=== PATIENT | female | born 1965 | race Caucasian/White ===

== ENCOUNTER 2020-02-28 23:32 | Emergency (ER) | payer BC ==
[~2020-02-28] VITALS: Ht 162.6 cm; Wt 79.5 kg
--- NOTE | 2020-02-28 23:56 | PHYS DOC ---
General Adult EDM: Chief Complaint: HAND PROBLEM HPI: HPI: Patient is a 54 year old female who presents with complaint of right hand pain after punching a glass door. Glass did not break. Patient reports pain is moderate in her knuckles. She denies any other injuries. [] Review of Systems: Review of Systems: Constitutional: Denies fever or chills. [] Respiratory: Denies cough or shortness of breath. [] Cardiovascular: Denies chest pain or edema. [] Musculoskeletal: Complains of right hand pain. [] Integument: Denies rash. [] Heart Score: Risk Factors: Risk Factors: DM, Current or recent (<one month) smoker, HTN, HLP, family hist ory of CAD, obesity. Risk Scores: Score 0 - 3: 2.5% MACE over next 6 weeks - Discharge Home Score 4 - 6: 20.3% MACE over next 6 weeks - Admit for Clinical Observation Score 7 - 10: 72.7% MACE over next 6 weeks - Early Invasive Strategies Physical Exam: PE: Constitutional: Well developed, well nourished, no acute distress, non-toxic appearance. [] Cardiovascular: Regular rate and rhythm [] Lungs & Thorax: Bilateral breath sounds clear to auscultation [] Extremities: Examination of right hand demonstrates soft tissue swelling and tenderness around the MCPs of second, third and fourth digits. [] Neurologic: Alert and oriented X 3, no focal deficits noted. [] EKG: EKG: [] Radiology/Procedures: Radiology/Procedures: [] Impression: X-ray of right hand demonstrates no acute bony abnormalities. Course & Med Decision Making: Course & Med Decision Making Pertinent Labs and Imaging studies reviewed. (See chart for details) [] Dragon Disclaimer: Dragon Disclaimer: This electronic medical record was generated, in whole or in part, using a voice recognition dictation system. Departure Departure Impression: Primary Impression: Contusion of right hand Qualified Codes: S60.221A - Contusion of right hand, initial encounter Disposition: HOME, SELF-CARE Condition: STABLE Patient Instructions: Hand Contusion Scripts Diclofenac Sodium (DICLOFENAC SODIUM) 50 Mg Tablet. 1 TAB PO BID PRN for PAIN, #20 TAB Prov: CHRIS NOE Jr. DO 02/29/20 Justicifation of Admission Dx: Justifications for Admission: Justification of Admission Dx: Comment: (Not applicable) CHRIS NOE Jr. DO Feb 28, 2020 23:56
[2020-02-29] MEDS ORDERED: DICL50TA4 PO (00:18)
[2020-02-29 00:42] VITALS: BP 113/55
--- NOTE | 2020-02-29 00:58 | RAD ---
EXAM: RIGHT HAND 3 VIEWS. HISTORY: Punched a door, pain. COMPARISON: None. FINDINGS: No fractures are identified. Alignment is maintained. Joint spaces are maintained. IMPRESSION: 1. No fracture. Electronically signed by: Carmelina Sarkar MD (02/29/2020 12:55 AM) [facility]
== END 2020-02-29 00:46 | disposition home or self-care (01) ==
LOC: ER 23:32
DX: S60.221A Contusion of right hand, initial encounter (principal); R60.0 Localized edema; Y29.XXXA Contact with blunt object, undetermined intent, initial encounter; Y93.89 Activity, other specified; Y92.89 Other specified places as the place of occurrence of the external cause; Y99.8 Other external cause status
CPT/HCPCS: 73130; 99283

== ENCOUNTER 2021-12-13 10:54 | Emergency (ER) | payer BC, OTHER ==
[~2021-12-13] VITALS: Ht 162.6 cm; Wt 69.3 kg
[~2021-12-13 10:54] MED LIST: DICL50TA4 PO
[2021-12-13 11:00] VITALS: BP 117/80
--- NOTE | 2021-12-13 11:11 | PHYS DOC ---
Past Medical History Past Medical History: No Pertinent History Past Surgical History: Hysterectomy, Oophorectomy, Tubal ligation Smoking Status: Never Smoker Alcohol Use: None General Adult EDM: Chief Complaint: HEADACHE HPI: HPI: Patient is a 56 year old female who presents here by private vehicle, with her daughter, with multiple complaints. Symptoms initially began on November 272021, then recurred and have been consistent for the past 4 days. She describes vertigo, headache, nausea and vomiting. Her headache is mostly right-sided. She does have a history of migraines, but she reports that her migraine pain is usually global, nonlocalized. No thunderclap headache reported. She reports photophobia and mildly blurred vision. No vision loss or hemianopsia. No fall or head injury or syncope. No neck pain or back pain. She reports the bottom of her right heel has felt tingling and numb for the past several days. She denies chest pain. She reports generalized mid abdominal discomfort, reports nausea, no vomiting. She denies bowel habit changes. She denies urinary sympto ms. She reports that she feels weak all over but feels like her right side is weaker. The patient's daughter gave her Dramamine a few days ago, the patient reports it did not help her symptoms but it helped her sleep. She has not taken anything for her headache pain. She has not seen her PCP. She initially presented to an urgent care earlier today, and the urgent care nurse pr actitioner contacted us informing us of her pending arrival. The nurse practitioner reported that she felt the patient's pupils were unequal and that she seemed to have some right-sided weakness. The patient herself was hesitant to seek any medical care, but her daughter had persuaded her to be seen. The patient describes several days of nasal congestion, postnasal drainage, tinnitus and hearing loss. Review of Systems: Review of Systems: Constitutional: Denies fever or chills. [] Eyes: Reports mild blurred vision, no vision loss or hemianopsia. No ocular pain. She does report photophobia HENT: She does report mild nasal congestion. Denies sore throat, voice changes, denies epistaxis. Denies facial pain. She does report some tinnitus and mild hearing loss. Respiratory: Denies cough or shortness of breath. [] Cardiovascular: Denies chest pain, palpitations, edema or syncope. GI: Reports generalized mid abdominal discomfort. Reports nausea, no vomiting. No bowel habit changes. : Denies urinary symptoms. Musculoskeletal: Denies back pain or joint pain. [] Integument: Denies rash. [] Neurologic: She does report a right-sided headache. Reports some tingling of her right foot, plantar surface. Feels that she is weaker on the right side. No facial droop or speech difficulty reported. Psychiatric: Anxiety Heart Score: C/O Chest Pain: No Risk Factors: Risk Factors: DM, Current or recent (<one month) smoker, HTN, HLP, family history of CAD, obesity. Risk Scores: Score 0 - 3: 2.5% MACE over next 6 weeks - Discharge Home Score 4 - 6: 20.3% MACE over next 6 weeks - Admit for Clinical Observation Score 7 - 10: 72.7% MACE over next 6 weeks - Early Invasive Strategies Allergies: Allergies: Allergies Coded Allergies Type Severity Reaction Last Updated Verified No Known Drug Allergies 02/28/20 No Physical Exam: PE: Constitutional: Well developed, well nourished, no acute distress, non-toxic appearance. [] HENT: Normocephalic, atraumatic, oropharynx is patent and clear. Mucous membranes are moist. There is no evidence of facial asymmetry, no evidence of facial trauma, no facial rash. Temporal arteries are nontender. TMs are clear bilaterally. External ear canals are normal bilaterally. Nares are patent and clear without rhinorrhea or epistaxis. No dental trauma is noted. Eyes: PERRL, EOMI, conjunctiva normal, no discharge. No nystagmus. No scleral icterus. No ocular trauma, no periorbital edema, erythema or contusion are noted. There is no evidence of anisocoria or unequal pupils. Neck: Normal range of motion, no tenderness, supple, no stridor. Trachea is midline. No JVD. No meningismus Cardiovascular:Heart rate regular rhythm, +2 radial and +2 posterior tibial pulses bilaterally. No edema. Warm and well-perfused Lungs & Thorax: Lungs are clear to auscultation bilaterally without rales, rhonchi or wheezes. No evidence of chest wall trauma. Abdomen: Abdomen is soft, nondistended, nontender to palpation. No palpable pulsatile mass. No CVA tenderness. No flank abdominal ecchymoses. Skin: Warm, dry, no erythema, no rash. No jaundice. No open wounds. Back: No tenderness, no CVA tenderness. Full range of motion. Extremities: No tenderness, no cyanosis, no clubbing, ROM intact, no edema. No calf tenderness. No limb deformity. Neurologic: The patient is awake, alert, oriented x3. Cranial nerves II through XII grossly intact. Sensation is grossly intact. She demonstrates 5 out of 5 motor strength in all 4 extremities. No limb ataxia is noted. Initially, she appeared to have some subtle right upper extremity drift, but this appeared to be volitional, and on repeat exam, she is able to hold her arm up without difficulty, no ataxia, no drift noted. Also, on initial exam of her right lower extremity, she seemed to have some difficulty holding her right leg up for a period time, but she reported this was secondary to her chronic right hip pain, subsequent exam reveals normal ability to hold her leg up against gravity. No lower extremity ataxia is noted. Her speech is clear and fluent. Psychologic: Affect is anxious, somewhat histrionic Current Patient Data: Vital Signs: Vital Signs Date Time Temp Pulse Resp B/P (MAP) Pulse Ox O2 Delivery O2 Flow Rate FiO2 12/13/21 11:00 98.7 68 16 117/80 (92) 99 Room Air 98.7 EKG: EKG: [] Radiology/Procedures: Radiology/Procedures: IMAGING REPORT Signed PATIENT: ALON CHAHAL ACCOUNT: [id number] : 1965 LOCATION: ER AGE: 56 SEX: F EXAM STATUS: REG ER ORD. PHYSICIAN: DENNIS SANTIZO DO REASON: vertigo, headache PROCEDURE: CT HEAD WO CONTRAST EXAM: Head CT without contrast. HISTORY: Vertigo. Headache. TECHNIQUE: Computed tomographic images of the head were obtained without contrast. *One or more of the following individualized dose reduction techniques were utilized for this examination: 1. Automated exposure control. 2. Adjustment of the mA and/or kV according to patient size. 3. Use of iterative reconstruction technique. COMPARISON: None. FINDINGS: There is no acute or subacute extra-axial or intraparenchymal hemorrhage. There is no mass effect or midline shift. There is no hydrocephalus. There is a small focus of hyperdensity within the left frontal white matter which may be volume averaging artifact or a focus of chronic encephalomalacia. The visualized portions of the orbits, paranasal sinuses and mastoid air cells are unremarkable. No suspicious calvarial lesion is seen. IMPRESSION: No acute intracranial finding. Note is made that MRI is more sensitive for acute infarction. Electronically signed by: Cherie Landa MD (12/13/2021 12:12 PM) [facility] DICTATED and SIGNED BY: CHERIE LANDA MD DATE: 12/13/21 1211 Course & Med Decision Making: Course & Med Decision Making Pertinent Labs and Imaging studies reviewed. (See chart for details) Patient is given IV fluids, IV Toradol, IV Benadryl. She reports near resolution of her headache. Her vertigo is markedly improved. She is ambulatory with a steady gait. She has a nonfocal neurologic exam. No evidence of limb or gait ataxia is noted. I have had multiple lengthy discussions with the patient and her daughter regarding the findings, differential diagnosis and plan of care. The patient does not wish to stay for any further evaluation, declines admission, she will follow-up as an outpatient with her PCP. I gave her outpatient formation for ENT and neurology as well. Strict return precautions are given, she verbalized understanding is comfortable with the plan of care. She is dismissed in stable and improved condition. Fareed Disclaimer: Fareed Disclaimer: This electronic medical record was generated, in whole or in part, using a voice recognition dictation system. Departure Departure Impression: Primary Impression: Headache Additional Impression: Vertigo Disposition: 01 HOME / SELF CARE / HOMELESS Condition: STABLE Referrals: LUCY SIMMONS (PCP) MAIA CANTRELL MD, COLLEEN N MD Patient Instructions: Benign Positional Vertigo, General Headache Without Cause, Migraine Headache, Vertigo Additional Instructions: Please return to the ER for more severe pain, if you fall or injure yourself, if you sustain loss of consciousness, if you develop severe neck stiffness, temperature 100.4 or higher, uncontrolled vomiting, dehydration, chest pain, shortness of breath, focal weakness or for any other concerns. Use the medications as needed/as directed. With the Valium, reserve this for severe vertigo symptoms only, do not take any other sedating medications with this, so do not take trazodone or alprazolam with this medication. Stay hydrated, drink plenty of fluids. Please follow-up with your primary care physician. You are being given information for outpatient ENT and neurology follow-up as well. Scripts Meclizine Hcl (MECLIZINE HCL) 25 Mg Tablet 1 TAB PO TID for vertigo or dizziness symptoms, #20 TAB Prov: DENNIS SANTIZO DO 12/13/21 Diazepam (VALIUM) 2 Mg Tablet 2 MG PO BID for vertigo or dizziness symptoms, #14 TAB Prov: DENNIS SANTIZO DO 12/13/21 Ondansetron (ONDANSETRON ODT) 4 Mg Tab.rapdis 1 TAB PO PRN Q6-8HRS for nausea and vomiting, #24 TAB Prov: DENNIS SANTIZO DO 12/13/21 DENNIS SANTIZO DO Dec 13, 2021 11:11
[2021-12-13] MEDS ORDERED: IV NORMAL SALINE 1000ML BAG 1,000 ML IV ONE (11:30)
[2021-12-13] MEDS ORDERED: diphenhydrAMINE 50 MG/ML VIAL IVP ONE (11:30)
[2021-12-13] MEDS ORDERED: KETOROLAC 15 MG/ML VIAL. IVP ONE (11:30)
[2021-12-13 11:50] LABS: BASO # 0.1 x10^3/uL (0.0-0.2); BASO % 1 % (0-3); EOS # 0.4 x10^3/uL (0.0-0.7); EOS % 5 % (0-3); HEMATOCRIT 45.3 % (36.0-47.0); HEMOGLOBIN 15.1 g/dL (12.0-15.5); LYMPH # 2.8 x10^3/uL (1.0-4.8); LYMPH % 34 % (24-48); MEAN CORPUSCULAR HEMOGLOBIN 29 pg (25-35); MEAN CORPUSCULAR HGB CONC 33 g/dL (31-37); MEAN CORPUSCULAR VOLUME 86 fL (79-100); MONO # 0.7 x10^3/uL (0.0-1.1); MONO % 9 % (0-9); NEUT # 4.2 x10^3/uL (1.8-7.7); NEUT % 52 % (31-73); PLATELET COUNT 186 x10^3/uL (140-400); RED BLOOD COUNT 5.25 x10^6/uL (3.50-5.40); RED CELL DISTRIBUTION WIDTH 14.3 % (11.5-14.5); WHITE BLOOD COUNT 8.1 x10^3/uL (4.0-11.0)
[2021-12-13 11:59] LABS: CREATININE 0.9 mg/dL (0.6-1.0); POTASSIUM 4.1 mmol/L (3.5-5.1)
[2021-12-13 12:01] LABS: AMPHETAMINE/METHAMPHETAMINE NEG (NEG); BARBITURATES NEG (NEG); BENZODIAZEPINES NEG (NEG); CANNABINOIDS NEG (NEG); COCAINE NEG (NEG); METHADONE NEG (NEG); OPIATES NEG (NEG); PHENCYCLIDINE NEG (NEG)
[2021-12-13 12:03] LABS: BACTERIA,URINE 0 /HPF (0-FEW); RBC,URINE 0 /HPF (0-2); WBC,URINE 0 /HPF (0-4)
[2021-12-13 12:06] LABS: ALBUMIN 4.2 g/dL (3.4-5.0); ALBUMIN/GLOBULIN RATIO 1.1 (1.0-1.7); MAGNESIUM 2.3 mg/dL (1.8-2.4); PHOSPHORUS 3.1 mg/dL (2.6-4.7); TOTAL BILIRUBIN 1.1 mg/dL (0.2-1.0); TOTAL PROTEIN 7.9 g/dL (6.4-8.2)
--- NOTE | 2021-12-13 12:14 | RAD ---
EXAM: Head CT without contrast. HISTORY: Vertigo. Headache. TECHNIQUE: Computed tomographic images of the head were obtained without contrast. *One or more of the following individualized dose reduction techniques were utilized for this examina tion: 1. Automated exposure control. 2. Adjustment of the mA and/or kV according to patient size. 3. Use of iterative reconstruction technique. COMPARISON: None. FINDINGS: There is no acute or subacute extra-axial or intraparenchymal hemorrhage. There is no mass effect or midline shift. There is no hydrocephalus. There is a small focus of hyperdensity within the left frontal white matter which may be volume avera ging artifact or a focus of chronic encephalomalacia. The visualized portions of the orbits, paranasal sinuses and mastoid air cells are unremarkable. No s uspicious calvarial lesion is seen. IMPRESSION: No acute intracranial finding. Note is made that MRI is more sensitive for acute infarcti on. Electronically signed by: Cherie Montejo MD (12/13/2021 12:12 PM) [facility]
[2021-12-13] MEDS ORDERED: DIAZ2TAB PO (12:56)
[2021-12-13] MEDS ORDERED: MECL-75 PO (12:56)
[2021-12-13] MEDS ORDERED: ONDA4TAB12 PO (12:56)
== END 2021-12-13 13:13 | disposition home or self-care (01) ==
LOC: ER 10:54
DX: R51.9 Headache, unspecified (principal); R42 Dizziness and giddiness; R11.2 Nausea with vomiting, unspecified; Z90.710 Acquired absence of both cervix and uterus; Z98.51 Tubal ligation status; Z90.722 Acquired absence of ovaries, bilateral
CPT/HCPCS: 36415; 70450; 80053; 80307; 81001; 82550; 83690; 83735; 84100; 84484; 85025; 96361; 96374; 96375; 99285; G0480; J1200; J1885; J7030